=== PATIENT | female | born 1985 | race Caucasian/White ===

== ENCOUNTER 2022-10-20 08:26 | Outpatient (CLI) | payer BC, SELFPAY ==
--- NOTE | 2022-10-20 08:45 | MR_ITS ---
WS: [id number] MRI HEAD WITH CONTRAST TECHNIQUE: Sagittal T1, T2 axial, T2 axial FLAIR, axial susceptibility weighted imaging, axial diffus ion weighted images, and coronal T2 images were obtained. Pre and post-T1 axial and post T1 coronal i mages. ADC and FSPGR images. CLINICAL INFORMATION: G43.711 - Chronic migraine without aura, intractable, wit... COMPARISON: None. FINDINGS: No evidence restricted diffusion to suggest acute ischemia. Ventricular system and basilar cisterns a re patent. No suspicious intracranial signal normalities. Normal pearson-white differentiation. No hemos iderin on the susceptibly weighted images. Normal posterior fossa. Normal vascular flow voids at the skull base. No extra-axial fluid collections. No evidence of mass or mass effect. Mild mucosal thicke richard paranasal sinuses. Mastoid air cells are well aerated. Normal posterior nasopharynx and parapha ryngeal fat. No abnormal gadolinium enhancement. Normal optic chiasm and pituitary infundibulum. Normal cavernous sinuses and Meckel's cave. Normal dural venous sinuses. IMPRESSION: 1. No evidence of restricted diffusion to suggest acute ischemia. 2. No suspicious intracranial signal normalities. Normal pearson-white differentiation. 3. No hemosiderin on the susceptibility weighted images. 4. No abnormal gadolinium enhancement. 5. Normal optic chiasm and pituitary infundibulum. 6. No other suspicious findings.
[2022-10-20] MEDS: gadobenate dimeglumine 20 mL vial IV (09:35)
== END 2022-10-20 08:27 | disposition home or self-care (01) ==
PROVIDERS: PCP Registered Nurse; Visit Provider Specialist
DX: G43.711 Chronic migraine without aura, intractable, with status migrainosus (principal)
CPT/HCPCS: 70553; A9577